=== PATIENT | male | born 1960 | race Caucasian/White ===

== ENCOUNTER 2016-11-08 19:04 | Emergency (ER) | payer OTHER ==
[~2016-11-08 19:04] MED LIST: ARIMIDEX1 PO; DEPO-TESTOS100 MG/ML IM; DIOVAN HC2 PO
== END 2016-11-08 19:50 | disposition home or self-care (01) ==
LOC: ER 19:04
DX: S39.012A Strain of muscle, fascia and tendon of lower back, initial encounter (principal); I10 Essential (primary) hypertension; Z79.899 Other long term (current) drug therapy; X50.1XXA Overexertion from prolonged static or awkward postures, initial encounter
CPT/HCPCS: 72100; 96372; 99284; J1170; J2405